=== PATIENT | female | born 1970 | race Caucasian/White ===

== ENCOUNTER 2017-02-17 17:23 | Emergency (ER) | payer OTHER ==
[2017-02-17 17:55] VITALS: BP 120/83
--- NOTE | 2017-02-17 18:17 | UC ---
Abdominal Pain Female HPI - HPI Summary HPI Summary: vague upper abdominal pain that would come and go starting 4-5 days ago, today "ramped up a lot" in the afternoon. Ate macaroni and cheese with broccoli for lunch. Now having lots of pain with deep breaths and position change, radiates to back and shoulder. Usually has daily BMs, normal BM today. - History of Current Complaint Chief Complaint: UCAbdominalPain Stated Complaint: ABDOMINAL PAIN Time Seen by Provider: 02/17/17 17:57 Hx Obtained From: Patient Hx Last Menstrual Period: 01/31/2017 ?: No Onset/Duration: Gradual Onset, Lasting Days Timing: Constant Severity Initially: Mild Severity Currently: Severe Location: Discrete At: RUQ Radiates: Yes Radiates to: Back, Other - R shoulder Character: Aching, Cramping Aggravating Factor(s): Movement, Deep Breaths Alleviating Factor(s): Nothing Associated Signs and Symptoms: Negative: Cough, Blood in Stool, Urinary Symptoms , Nausea, Vomiting Allergies/Adverse Reactions: Allergies Allergy/AdvReac Type Severity Reaction Status Date / Time Triptans Allergy Intermediate Swelling Verified 07/15/15 14:05 Of Face,Lips,& Throat Home Medications: Home Medications Norethindrone (Contraceptive) [Deblitane] 1 tab PO QAM 02/17/17 [History Confirmed 02/17/17] PMH/Surg Hx/FS Hx/Imm Hx Endocrine History Of: Denies: Diabetes, Thyroid Disease Cardiovascular History Of: Denies: Cardiac Disorders, Hypertension Respiratory History Of: Denies: COPD, Asthma GI/ History Of: Denies: Ulcer Cancer History Of: Denies: Breast Cancer - Surgical History Surgical History: Yes Surgery Procedure, Year, and Place: 04/25/1999 - - Family History Known Family History: Positive: Other - no fhx of gallbladder disease - Social History Lives: With Family Alcohol Use: None Substance Use Type: None Smoking Status (MU): Never Smoked Tobacco Review of Systems Constitutional: Negative Skin: Negative Eyes: Negative ENT: Negative Respiratory: Negative Cardiovascular: Negative Gastrointestinal: Abdominal Pain Genitourinary: Negative Motor: Negative Neurovascular: Negative Musculoskeletal: Negative Neurological: Negative Psychological: Negative All Other Systems Reviewed And Are Negative: Yes Physical Exam Triage Information Reviewed: Yes Appearance: Well-Nourished, Pain Distress - mod with movement Vital Signs: Initial Vital Signs Temp 100.3 F 02/17/17 17:46 Pulse 79 02/17/17 17:46 Resp 16 02/17/17 17:46 BP 120/83 02/17/17 17:46 Pulse Ox 97 02/17/17 17:46 Vital Signs Reviewed: Yes Eye Exam: Normal Eyes: Positive: Conjunctiva Clear ENT Exam: Normal ENT: Positive: Normal ENT inspection, Hearing grossly normal, Pharynx normal, TMs normal Dental Exam: Normal Neck exam: Normal Neck: Positive: Supple, Nontender, No Lymphadenopathy Respiratory Exam: Normal Respiratory: Positive: Chest non-tender, Lungs clear, Normal breath sounds, No respiratory distress, No accessory muscle use Cardiovascular Exam: Normal Cardiovascular: Positive: RRR, No Murmur Abdomen Description: Positive: Soft, Guarding. Negative: Nontender - very tender in RUQ, Bruit, CVA Tenderness (R), CVA Tenderness (L), Distended, McBurney's Point Tenderness Musculoskeletal Exam: Normal Neurological Exam: Normal Neurological: Positive: Alert Psychological Exam: Normal Skin Exam: Normal Abd Pain Female Course/Dx - Differential Dx/Diagnosis Provider Diagnoses: RUQ pain, suspect biliary colic - Physician Notification/Consults Discussed Patient Care With: HARDIK Kim Time Discussed With Above Provider: 18:14 Instructed by Provider To: Will See In ED Discharge - Discharge Plan Condition: Stable Disposition: AGAINST MEDICAL ADVICE
== END 2017-02-17 18:35 | disposition left against medical advice (07) ==
LOC: UCEAST 17:23
DX: R10.11 Right upper quadrant pain (principal); Z88.8 Allergy status to other drugs, medicaments and biological substances
CPT/HCPCS: 81003; 99212; G0463

== ENCOUNTER 2017-02-17 18:37 | Emergency (ER) | payer OTHER ==
[2017-02-17] MEDS ORDERED: NS 0.9% 1000 ML* 1,000 ML IV ONE (19:59)
[2017-02-17 20:25] LABS: Hematocrit 38 % (35-47); Hemoglobin 12.4 g/dl (12.0-16.0); Mean Corpuscular HGB Conc 33 g/dl (31-36); Mean Corpuscular Hemoglobin 32 pg (27-31); Mean Corpuscular Volume 97 fL (80-97); Mean Platelet Volume 9 um3 (7.4-10.4); Red Blood Count 3.89 10^6/ul (4.0-5.4); Red Cell Distribution Width 13 % (10.5-15); White Blood Count 7.6 10^3/ul (3.5-10.8)
[2017-02-17 20:41] LABS: ALT 13 U/L (7-52); AST 14 U/L (13-39); Alkaline Phosphatase 40 U/L (34-104); Amylase 42 U/L (29-103); Anion Gap 7 mmol/L (2-11); BUN/Creatinine Ratio 13.6 (8-20); Blood Urea Nitrogen 9 mg/dL (6-24); C Reactive Protein < 1.00 mg/L (< 5.00); CO2 Carbon Dioxide 24 mmol/L (22-32); Calcium 9.2 mg/dL (8.6-10.3); Chloride 105 mmol/L (101-111); EGFR African American 124.6 (>60); EGFR Non-African American 96.8 (>60); Globulin 2.6 g/dL (2-4); Glucose 83 mg/dL (70-100); Lipase 14 U/L (11.0-82.0); Potassium 4.1 mmol/L (3.5-5.0); Sodium 136 mmol/L (133-145); Total Protein 6.6 g/dL (6.4-8.9)
--- NOTE | 2017-02-17 20:52 | RAD ---
Indication: RIGHT upper quadrant pain. Comparison: February 13, 2010 CT. Technique: RIGHT upper quadrant ultrasound. Report: Appropriate direction flow documented in the portal and hepatic veins. 18.1 cm cephalocaudal liver is normal in echotexture and without evidence for focal lesions or intrahepatic biliary dilatation. 3.5 mm common bile duct. Adequately distended gallbladder with normal 2.1 mm wall is without pathologic finding. Negative for sonographic Hedrick's sign. Unremarkable pancreas. Negative for ascites. Unremarkable 11.1 x 5.2 x 4.2 cm RIGHT kidney. IMPRESSION: Negative RIGHT upper quadrant ultrasound.
--- NOTE | 2017-02-17 21:46 | RAD ---
INDICATION: Pain with inspiration. Cough. Question pneumonia or pneumothorax. COMPARISON: January 04, 2010 TECHNIQUE: Dual energy PA and routine lateral views of the chest were obtained. REPORT: Elevated lung volumes and both mildly coarsened and patchy rarefaction of the interstitial markings. No alveolar consolidation, focal pulmonary lesion, pleural effusion, pneumothorax. The heart, pulmonary vasculature, and mediastinal contours are unremarkable. Mild anterior compression deformity of the approximate T7 vertebral body is unchanged compared with the 2010 exam. No acute thoracic fractures evident. IMPRESSION: Stigmata of chronic obstructive pulmonary disease. No acute cardiopulmonary process evident.
[2017-02-17] MEDS ORDERED: traMADol TAB* 50 MG PO ONE (21:59)
--- NOTE | 2017-02-17 22:47 | ED ---
I, Oh,Soohjosé luis, scribed for Gerry Lyons MD on 02/17/17 at 2100 . Abdominal Pain/Female - HPI Summary HPI Summary: This 46 y/o female presents to ED for acute RUQ pain since 3 days ago after having lunch. Pain is described "twinge" and radiates to back. Pt initially dismissed the pain as muscular strain, but decided to visit ED when she became concerned. It is worse with yawning, lying down, or any other movements. Sitting up straight makes the pain better. Negative n/v/d, dysuria, SOB, or CP. No discoloration of urine. PSHx includes remote . Negative esmer or appy. Nonsmoker and nondrinker. She recently had travel from [place], [place]. Pt is currently on control. - History of Current Complaint Chief Complaint: EDAbdPain Stated Complaint: ABD PAIN Time Seen by Provider: 02/17/17 19:45 Hx Obtained From: Patient, Medical Records Hx Last Menstrual Period: 01/31/2017 Onset/Duration: Sudden Onset Pain Intensity: 6 Pain Scale Used: 0-10 Numeric Location: Discrete At: RUQ Radiates: Yes Radiates to: Back Character: Sharp Aggravating Factor(s): Movement, Deep Breaths Alleviating Factor(s): Other: - Rest Associated Signs and Symptoms: Negative: Fever, Chest Pain, Urinary Symptoms, Nausea, Vomiting, Diarrhea Allergies/Adverse Reactions: Allergies Allergy/AdvReac Type Severity Reaction Status Date / Time Triptans Allergy Intermediate Swelling Verified 07/15/15 14:05 Of Face,Lips,& Throat PMH/Surg Hx/FS Hx/Imm Hx Endocrine/Hematology History: Denies: Hx Diabetes, Hx Thyroid Disease Cardiovascular History: Denies: Hx Hypertension Respiratory History: Denies: Hx Asthma, Hx Chronic Obstructive Pulmonary Disease (COPD) GI History: Denies: Hx Ulcer - Cancer History Hx Chemotherapy: No Hx Radiation Therapy: No - Surgical History Surgery Procedure, Year, and Place: 04/25/1999 - Infectious Disease History: No Infectious Disease History: Denies: Hx Clostridium Difficile, Hx Hepatitis, Hx Human Immunodeficiency Virus (HIV), Hx of Known/Suspected MRSA, Hx Shingles, Hx Tuberculosis, Hx Known/ Suspected VRE, History Other Infectious Disease, Traveled Outside the [place] in Last 30 Days - Family History Known Family History: Positive: Other - no fhx of gallbladder disease - Social History Alcohol Use: None Hx Substance Use: No Substance Use Type: Reports: None Hx Tobacco Use: No Smoking Status (MU): Never Smoked Tobacco Review of Systems Negative: Fever Negative: Shortness Of Breath Positive: Abdominal Pain - RUQ. Negative: Vomiting, Diarrhea, Nausea Negative: dysuria Negative: Edema - BLE All Other Systems Reviewed And Are Negative: Yes Physical Exam - Summary Physical Exam Summary: The patient is well-nourished in no acute distress and in no acute pain. The skin is warm and dry and skin color reflects adequate perfusion. There is no rash seen over the right hemithorax. HEENT: The head is normocephalic and atraumatic. The pupils are equal and reactive. The conjunctivae are clear and without drainage. Nares are patent and without drainage. Oral mucosa moist. Neck is supple with full range of motion and non-tender. There are no carotid bruits. There is no neck vein distension. Respiratory: Chest is tender over right Lungs are clear to auscultation and breath sounds are symmetrical and equal. Decreased air sound on right base. Cardiovascular: Heart is regular rate and rhythm. There is no murmur or rub auscultated. There is no peripheral edema and pulses are symmetrical and equal. Abdomen: No organomegaly palpated. Negative CVA tenderness. Negative McBurney' s point tenderness. Questionable Hedrick's sign. Musculoskeletal: There is no back pain noted. Extremities are non-tender with full range of motion. There is good capillary refill. There is no peripheral edema or calf tenderness elicited. Neurological: Patient is alert and oriented to person, place and time. The patient has symmetrical motor strength in all four extremities. Cranial nerves are grossly intact. Deep tendon reflexes are symmetrical and equal in all four extremities. Psychiatric: The patient has an appropriate affect and does not exhibit any anxiety or depression. Triage Information Reviewed: Yes Vital Signs On Initial Exam: Initial Vitals Temp Pulse Resp BP Pulse Ox 99.5 F 68 20 134/80 100 02/17/17 18:41 02/17/17 18:41 02/17/17 18:41 02/17/17 18:41 02/17/17 18:41 Vital Signs Reviewed: Yes Diagnostics - Vital Signs Vital Signs Temp Pulse Resp BP Pulse Ox 02/17/17 18:44 98.2 F 79 20 134/80 99 02/17/17 18:41 99.5 F 68 20 134/80 100 - Laboratory Lab Results: Lab Results 02/17/17 02/17/17 02/17/17 Range/Units 20:15 20:15 20:15 WBC 7.6 (3.5-10.8) 10^3/ul RBC 3.89 L (4.0-5.4) 10^6/ul Hgb 12.4 (12.0-16.0) g/dl Hct 38 (35-47) % MCV 97 (80-97) fL MCH 32 H (27-31) pg MCHC 33 (31-36) g/dl RDW 13 (10.5-15) % Plt Count 186 (150-450) 10^3/ul MPV 9 (7.4-10.4) um3 Neut % (Auto) 64.8 (38-83) % Lymph % (Auto) 26.8 (25-47) % Lake % (Auto) 6.1 (1-9) % Eos % (Auto) 1.1 (0-6) % Baso % (Auto) 1.2 (0-2) % Absolute Neuts (auto) 4.9 (1.5-7.7) 10^3/ul Absolute Lymphs (auto) 2.0 (1.0-4.8) 10^3/ul Absolute Monos (auto) 0.5 (0-0.8) 10^3/ul Absolute Eos (auto) 0.1 (0-0.6) 10^3/ul Absolute Basos (auto) 0.1 (0-0.2) 10^3/ul Absolute Nucleated RBC 0.01 10^3/ul Nucleated RBC % 0.1 INR (Anticoag Therapy) 0.92 (0.89-1.11) D-Dimer, Quantitative < 200 (Less Than 230) ng/mL Sodium 136 (133-145) mmol/L Potassium 4.1 (3.5-5.0) mmol/L Chloride 105 (101-111) mmol/L Carbon Dioxide 24 (22-32) mmol/L Anion Gap 7 (2-11) mmol/L BUN 9 (6-24) mg/dL Creatinine 0.66 (0.51-0.95) mg/dL Est GFR ( Amer) 124.6 (>60) Est GFR (Non-Af Amer) 96.8 (>60) BUN/Creatinine Ratio 13.6 (8-20) Glucose 83 (70-100) mg/dL Lactic Acid (0.5-2.0) mmol/L Calcium 9.2 (8.6-10.3) mg/dL Total Bilirubin 0.40 (0.2-1.0) mg/dL AST 14 (13-39) U/L ALT 13 (7-52) U/L Alkaline Phosphatase 40 (34-104) U/L Troponin I 0.00 (<0.04) ng/mL C-Reactive Protein < 1.00 (< 5.00) mg/L Total Protein 6.6 (6.4-8.9) g/dL Albumin 4.0 (3.2-5.2) g/dL Globulin 2.6 (2-4) g/dL Albumin/Globulin Ratio 1.5 (1-3) Amylase 42 (29-103) U/L Lipase 14 (11.0-82.0) U/L // Range/Units 20:15 WBC (3.5-10.8) 10^3/ul RBC (4.0-5.4) 10^6/ul Hgb (12.0-16.0) g/dl Hct (35-47) % MCV (80-97) fL MCH (27-31) pg MCHC (31-36) g/dl RDW (10.5-15) % Plt Count (150-450) 10^3/ul MPV (7.4-10.4) um3 Neut % (Auto) (38-83) % Lymph % (Auto) (25-47) % Lake % (Auto) (1-9) % Eos % (Auto) (0-6) % Baso % (Auto) (0-2) % Absolute Neuts (auto) (1.5-7.7) 10^3/ul Absolute Lymphs (auto) (1.0-4.8) 10^3/ul Absolute Monos (auto) (0-0.8) 10^3/ul Absolute Eos (auto) (0-0.6) 10^3/ul Absolute Basos (auto) (0-0.2) 10^3/ul Absolute Nucleated RBC 10^3/ul Nucleated RBC % INR (Anticoag Therapy) (0.89-1.11) D-Dimer, Quantitative (Less Than 230) ng/mL Sodium (133-145) mmol/L Potassium (3.5-5.0) mmol/L Chloride (101-111) mmol/L Carbon Dioxide (22-32) mmol/L Anion Gap (2-11) mmol/L BUN (6-24) mg/dL Creatinine (0.51-0.95) mg/dL Est GFR ( Amer) (>60) Est GFR (Non-Af Amer) (>60) BUN/Creatinine Ratio (8-20) Glucose (70-100) mg/dL Lactic Acid 0.8 (0.5-2.0) mmol/L Calcium (8.6-10.3) mg/dL Total Bilirubin (0.2-1.0) mg/dL AST (13-39) U/L ALT (7-52) U/L Alkaline Phosphatase (34-104) U/L Troponin I (<0.04) ng/mL C-Reactive Protein (< 5.00) mg/L Total Protein (6.4-8.9) g/dL Albumin (3.2-5.2) g/dL Globulin (2-4) g/dL Albumin/Globulin Ratio (1-3) Amylase (29-103) U/L Lipase (11.0-82.0) U/L Result Diagrams: 02/17/17 20:15 02/17/17 20:15 Lab Statement: Any lab studies that have been ordered have been reviewed, and results considered in the medical decision making process. - Radiology CXR Xray Interpretation: No Acute Changes Radiology Interpretation Completed By: Radiologist - Additional Comments Diagnostic Additional Comments: US gallbladder -- negative RUQ US. Re-Evaluation - Re-Evaluation First Eval Re-Evaluation Time: 21:54 Comment: Dr. Lyons in room to update pt on lab results and imaging studies. Plan of care involving outpatient f/u is discussed, and pt is agreeable at this time. Abdominal Pain Fem Course/Dx - Course Course Of Treatment: This 46 y/o female presents to ED with acute onset of RUQ pain that radiates to back. Pt initially dismissed the pain as muscular strain but decided to visit ED today when she became concerned with persistent pain. Pain is worse with any movements such as yawning or lying down. Sitting up straight and remaining at rest alleviates the pain. CXR and US GB are indicated negative. Pt is at this time discharged with diagnosis of right pleuritic chest pain and f/u instruction with her primary care provider. - Diagnoses Differential Diagnosis: Positive: Gall Bladder Disease, Pancreatitis, Pneumonia , Other - shingles, pe, pneumothorax, gall bladder disease Provider Diagnoses: right pleuritic chest pain Discharge - Discharge Plan Condition: Stable Disposition: HOME Prescriptions: Tramadol HCl [Ultram] 50 mg PO QID #20 tab MDD 4 Patient Education Materials: Chest Wall Pain (ED), Tramadol (By mouth) Referrals: Anish Sullivan MD [Primary Care Provider] - 2 Days The documentation as recorded by the Jeramy mclean Soohyun accurately reflects the service I personally performed and the decisions made by me, Gerry Lyons MD.
[2017-02-17 22:49] VITALS: BP 120/79
== END 2017-02-17 22:48 | disposition home or self-care (01) ==
LOC: ED 18:37
DX: R07.81 Pleurodynia (principal); R10.11 Right upper quadrant pain; Z88.8 Allergy status to other drugs, medicaments and biological substances
CPT/HCPCS: 36415; 71020; 76705; 80053; 82150; 83605; 83690; 84484; 85025; 85379; 85610; 86140; 93005; 96360; 96361; 99283; A9270-GY

== ENCOUNTER 2018-05-28 07:04 | Emergency (ER) | payer OTHER ==
[2018-05-28 07:19] VITALS: BP 113/74
--- NOTE | 2018-05-28 07:19 | UC ---
HPI Febrile Illness - HPI Summary HPI Summary: This is vinay Tan documenting for attending Misael Srivastava . This patient is a 48 year old F presenting to [facility] with a chief complaint of cold symptoms that began 3 days ago. The patient rates the pain 2/10 in severity. Pt took brady seltzer and aleve without much relief. Patient reports upper back pain, dry cough, rhinorrhea, ear pain, mental fogginess, fever of 101.7, and a sore throat. Patient denies SOB. Pt recently went to [place] and believes she may have gotten the illness from the plane. - History of Current Complaint Time Seen by Provider: 05/28/18 07:10 Hx Obtained From: Patient Hx Last Menstrual Period: 01/31/2017 Onset/Duration: Started Days Ago - 3, Still Present Timing: Constant Temperature: 101.7 F Initial Severity: Moderate Current Severity: Moderate Associated Signs and Symptoms: Other: - upper back pain, dry cough, rhinorrhea, ear pain, mental fogginess, fever of 101.7, and a sore throat. - Allergy/Home Medications Allergies/Adverse Reactions: Allergies Allergy/AdvReac Type Severity Reaction Status Date / Time bacitracin Allergy Itching Verified 05/28/18 07:20 [From Neosporin ([id number])] neomycin Allergy Itching Verified 05/28/18 07:20 [From Neosporin ([id number])] polymyxin B Allergy Itching Verified 05/28/18 07:20 [From Neosporin ([id number])] [id number] Antimigraine Allergy Swelling Verified 05/28/18 07:20 Agents Of Face,Lips,& Throat Home Medications: Home Medications Chlorphen/Phenyleph/Dm/Aspirin [[place] Plus Cold &] 1 tab PO Q12HR PRN 06/07 [History Confirmed 05/28/18] Nor Q D Bcp 1 tab PO DAILY 05/28/18 [History] PMH/Surg Hx/FS Hx/Imm Hx Respiratory History: COPD Other History Of: Negative For: Anticoagulant Therapy - Surgical History Surgical History: Yes Surgery Procedure, Year, and Place: 04/25/1999 - - Family History Known Family History: Positive: Other - no fhx of gallbladder disease - Social History Lives: With Family - father Alcohol Use: None Substance Use Type: None Smoking Status (MU): Never Smoked Tobacco Review of Systems Constitutional: Fever ENT: Sore Throat, Ear Ache, Nasal Discharge Respiratory: Cough Musculoskeletal: Other: - upper back pain Neurological: Other - mental fogginess All Other Systems Reviewed And Are Negative: Yes Physical Exam - Summary Physical Exam Summary: General: mildly ill appearing, no pain distress Skin: warm, color reflects adequate perfusion, dry Head: normal Eyes: EOMI, ROSITA ENT: positive rhinorrhea, posterior pharynx is erythematous Neck: supple, nontender Respiratory: trace wheeze but lungs are clear Cardiovascular: RRR Abdomen: soft, nontender Bowel: present Musculoskeletal: normal, strength/ROM intact Neurological: sensory/motor intact, A&O x3 Psychological: affect/mood appropriate Triage Information Reviewed: Yes Vital Signs Reviewed: Yes Re-Evaluation - Re-Evaluation First Eval Re-Evaluation Time: 07:50 Change: Unchanged Comment: I discussed test results and discharge with the patient. Course/Dx - Course Course Of Treatment: DISCUSSED VIRAL VERSES BACTERIAL INFECTION AND THE ROLE OF ANTIBIOTICS. ANTIBIOTICS RX TO BE USED IF IF IMPROVED OR WORSE. F/U PMD; RECHECK SOONER IF WORSE. - Diagnoses Clinic Provider Diagnoses: PHARYNGITIS. BRONCHITIS WITH BRONCHOSPASM Discharge - Sign-Out/Discharge Documenting (check all that apply): Patient Departure - Discharge Plan Condition: Stable Disposition: HOME Prescriptions: Albuterol HFA INHALER* [Ventolin HFA Inhaler*] 2 puff INH Q4H PRN #1 mdi PRN Reason: Wheezing Azithromyxin JORGE LUIS (NF) [Z-Jorge Luis (Zithromax) 250 mg tabs #6] 2 tab PO .TODAY, THEN 1 DAILY #6 tab Benzonatate CAP* [Tessalon 100 MG CAP*] 100 mg PO TID PRN #15 cap PRN Reason: Cough Patient Education Materials: Pharyngitis (ED), Acute Bronchitis (ED), Bronchospasm (ED) Referrals: Anish Sullivan MD [Primary Care Provider] - Additional Instructions: FOLLOW UP WITH YOUR DOCTOR IF NOT COMPLETELY IMPROVED. GET RECHECKED FOR ANY WORSENING OF YOUR CONDITION OR QUESTIONS OR CONCERNS. - Billing Disposition and Condition Condition: STABLE Disposition: Home Attestation Statement Scribe Attestation: This is vinay Tan documenting for attending Misael Srivastava . User Type: Provider with Scribe - I, Dr. Srivastava, personally performed the services described in this documentation as scribed in my presence and it is both accurate and complete. Provider Attestation: The documentation recorded by the scribe accurately reflects the service I personally performed and the decisions made by me.
== END 2018-05-28 08:11 | disposition home or self-care (01) ==
LOC: UCEAST 07:04
DX: J02.9 Acute pharyngitis, unspecified (principal); J20.9 Acute bronchitis, unspecified; Z88.3 Allergy status to other anti-infective agents; Z88.8 Allergy status to other drugs, medicaments and biological substances
CPT/HCPCS: 87651; 99212; G0463